=== PATIENT | male | born 1990 | race Hispanic/Latino ===

== ENCOUNTER 2019-05-05 09:50 | Emergency (ER) | payer SELFPAY ==
[2019-05-05 10:04] VITALS: BP 138/92
[2019-05-05] MEDS ORDERED: KETOROLAC 30 MG/1 ML INJ IV ONE (10:09)
[2019-05-05] MEDS ORDERED: SODIUM CHLORIDE 0.9% 1000 ML 1,000 ML IV ONE (10:09)
--- NOTE | 2019-05-05 10:10 | Emergency Department Report ---
ED Upper Extremity Inj HPI - General Chief Complaint: Shoulder Injury Stated Complaint: POSS LT DISLOCATED SHOULDER Time Seen by Provider: 05/05/19 10:08 Source: patient Mode of arrival: Ambulatory Limitations: No Limitations - History of Present Illness Initial Comments: Patient is a 29-year-old male who comes to the ER after reaching for something at work and dislocating his left shoulder. He states that he has frequent spontaneous dislocations. He states he can usually reduce the shoulder itself but today he could not. On presentation he is neurovascularly intact but is limited range of motion due to pain of the left arm. Past medical history none Past surgical history none Denies cigarettes alcohol or drugs has no PCP or orthopedic doctor. - Related Data Allergies Allergy/AdvReac Type Severity Reaction Status Date / Time No Known Allergies Allergy Unverified 05/05/19 09:52 ED Review of Systems ROS: Stated complaint: POSS LT DISLOCATED SHOULDER Other details as noted in HPI Comment: All other systems reviewed and negative ED Past Medical Hx - Past Medical History Previous Medical History?: Yes Additional medical history: shoulder dislocation - Surgical History Past Surgical History?: No - Family History Family history: no significant - Social History Smoking Status: Never Smoker Substance Use Type: None ED Physical Exam - General Limitations: No Limitations General appearance: alert, in no apparent distress - Head Head exam: Present: atraumatic, normocephalic - Eye Eye exam: Present: normal appearance - ENT ENT exam: Present: mucous membranes moist - Neck Neck exam: Present: normal inspection - Respiratory Respiratory exam: Present: normal lung sounds bilaterally. Absent: respiratory distress - Cardiovascular Cardiovascular Exam: Present: regular rate, normal rhythm. Absent: systolic murmur, diastolic murmur, rubs, gallop - GI/Abdominal GI/Abdominal exam: Present: soft, normal bowel sounds - Rectal Rectal exam: Present: deferred - Extremities Exam Extremities exam: Present: normal inspection - Expanded Upper Extremity Exam Left Shoulder Exam: Present: deformity, other (distal rad/ulnar pulse plus 2; rom limited with pain) - Back Exam Back exam: Present: normal inspection - Neurological Exam Neurological exam: Present: alert, oriented X3 - Psychiatric Psychiatric exam: Present: normal affect, normal mood - Skin Skin exam: Present: warm, dry, intact, normal color. Absent: rash ED Course Vital Signs 05/05/19 10:02 Temperature 97.7 F Pulse Rate 82 Respiratory 20 Rate Blood Pressure 138/92 [Right] O2 Sat by Pulse 98 Oximetry ED Medical Decision Making - Radiology Data Radiology results: report reviewed, image reviewed - Medical Decision Making while taking shirt off pt popped shoulder back in place. staffed with Dr Michel riversays noted mediated for pain sling and swath neurovascular intact on discharge. dc home with ortho follow up Vital Signs 05/05/19 10:02 Temperature 97.7 F Pulse Rate 82 Respiratory 20 Rate Blood Pressure 138/92 [Right] O2 Sat by Pulse 98 Oximetry - Differential Diagnosis ro dislocation or fx Critical care attestation.: If time is entered above; I have spent that time in minutes in the direct care of this critically ill patient, excluding procedure time. ED Disposition Clinical Impression: Shoulder dislocation Disposition: DC-01 TO HOME OR SELFCARE Is pt being admited?: No Does the pt Need Aspirin: No Condition: Stable Instructions: Shoulder Dislocation (ED) Additional Instructions: sling/swath for comfort motrin 800 mg every 8 hours, with food for pain follow up with ortho MD referral below ice shoulder today Referrals: CHERELLE MCCOY MD [Staff Physician] - 3-5 Days Time of Disposition: 10:41
--- NOTE | 2019-05-05 11:15 | XRay Report ---
LEFT SHOULDER ONE VIEW INDICATION / CLINICAL INFORMATION: post reduction COMPARISON: 05/05/2019, 1004 hours FINDINGS: BONES / JOINT(S): Humeral head has been relocated into the shoulder joint. Dislocation is been reduce d. No fracture is seen. SOFT TISSUES: No significant abnormality. ADDITIONAL FINDINGS: None. Signer Name: Edvin Hurst MD Signed: 05/05/2019 10:54 AM Workstation Name: [id number]
--- NOTE | 2019-05-05 11:16 | XRay Report ---
LEFT SHOULDER 3 VIEWS INDICATION / CLINICAL INFORMATION: Shoulder pain, possible dislocation COMPARISON: None available. FINDINGS: BONES / JOINT(S): There is dislocation of the left shoulder joint. No fracture is seen SOFT TISSUES: No significant abnormality. ADDITIONAL FINDINGS: None. Signer Name: Edvin Hurst MD Signed: 05/05/2019 11:01 AM Workstation Name: [email or web address]
== END 2019-05-05 11:17 | disposition home or self-care (01) ==
LOC: ED 09:50
DX: S43.005A Unspecified dislocation of left shoulder joint, initial encounter (principal); X58.XXXA Exposure to other specified factors, initial encounter; Y93.89 Activity, other specified; Y92.89 Other specified places as the place of occurrence of the external cause; Y99.8 Other external cause status